=== PATIENT | female | born 1950 | race Caucasian/White ===

== ENCOUNTER → 2017-05-11 | Day surgery (SDC) | payer OTHER ==
[~2017-05-11] VITALS: Ht 165.1 cm; Wt 63.5 kg
--- NOTE | 2017-05-11 11:04 | Operative Report ---
Operative/Inv Procedure Report Surgery Date: 05/11/17 Name of Procedure: 1. exam under anesthesia 2. proctoplasty Pre-Operative Diagnosis: anterior midline mucosal prolapse Post-Operative Diagnosis: same Estimated Blood Loss: scant Surgeon/Solar Sales Representative: Kathryn Leblanc MD Anesthesia: local monitored anesthesi Specimens: prolapse Complications: none Condition: stable Operative Indication: A 66 year-old woman with urinary complaints and anterior midline rectal mucosal prolapse presents for surgery with Dr. Bowens and proctoplasty. All risks, benefits, and alternatives were explained to patient in detail, and she expressed understanding and agreement with the same. Operative/Procedure Note Note: Patient was taking to the operating room and placed on the operating table. Perioperative antibiotic was given and bilateral low extremities SCDs were placed. Anesthesia was established by the anesthesia team. Patient was placed in the modified lithotomy position with legs in Joel stirrups. The perineum was prepped and draped in the standard surgical fashion. The timeout was carried out. The anal block with administered with 30cc Exparel. On anoscopy, patient had and anterior midline mucosal prolapse. The anoderm was dissected sharply and care was taken to identify the sphincter muscles and protect them. The mucosa was excised with the Ligusure device. The mucosa and anoderm were closed with a running 2-0 Vicryl suture in a radial fashion. The anal canal was copiously irrigated and checked for hemostatis. The sponge and instrument counts were correct in the end of the procedure. Dr. Bowens started her part once proctoplasty was complete. Findings: anterior midline rectal prolapse
--- NOTE | 2017-05-11 13:47 | Operative Report ---
Operative/Inv Procedure Report Surgery Date: 05/11/17 Name of Procedure: Cystocele repair with mesh, rectocele repair with Acell mesh. Urethral sling, cystoscopy. Pre-Operative Diagnosis: Cystocele grade 4, rectocele grade 3, stress urinary incontinence. Post-Operative Diagnosis: Same Estimated Blood Loss: none (200cc) Surgeon/Web Developer Programmer: Isa Bowens MD Anesthesia: laryngeal mask airway Implants: Vaginal mesh Complications: None Condition: Stable Operative Indication: Symptomatic pelvic organ prolapse with stress urinary incontinence Operative/Procedure Note Note: This an operative dictation on patient Daria Duke. 66-year-old female with symptomatic vaginal pelvic organ prolapse. On physical examination she had a grade 3-4 cystocele rectocele grade 3 as well as stress urinary incontinence. She was given the risks benefits and alternatives of pelvic organ prolapse surgery including robotic open abdominal vaginal and with it without mesh. The risks benefits and alternatives of the surgeries were given and she wished to proceed with vaginal repair with mesh. All questions were answered. Patient was identified in the holding area and brought to the operating room placed on the operating table in the supine position. Timeout was performed. IV antibiotics were infused and general anesthesia was begun. Patient was then placed in the dorsolithotomy position and and prepped and draped in the standard sterile fashion after shaving the genitalia region. The catheter was placed in the bladder was emptied. This was clamped and placed on the patient's abdomen. [place] retractor was placed with 6 stay hooks. 1% lidocaine with epinephrine was infiltrated into the anterior vaginal wall from the bladder neck to the cervix. Vaginal flaps are created taking care not to injure the bladder. The dissection was carried from the bladder neck down to the 6 spinous process bilaterally into the retropubic space. The sacrospinous ligament was cleaned off on both sides to allow for the thin Capio device to secure Prolene suture through the ligament. This was followed by Prolene sutures through the arcus tendineus on the patient's right and left side at the level of the bladder neck. The Restoril mesh was then used to reduce the cystocele after placing through the Prolene sutures that were in place as previously described. The distal portion was secured with 2-0 Vicryl the bladder neck and the proximal portion was secured at the level of the cervix with a 2-0 Vicryl as well. Down and the cystocele was reduced to grade 1. Area was copiously irrigated with bacitracin irrigation and Surgicel was placed deep into the pelvis along the sacrospinous ligament on the patient's right and left side. Incision was closed with running locking 2-0 Vicryl suture. 10 mL of methylene blue were given at this time to check the patency of the ureters. A cystoscopy was performed and the bladder was globally inspected. There is no mesh in the bladder or the urethra. Ureteral orifices were in their normal anatomic position. Good ureteral Deflux was seen from both ureters. The Farrell was placed back into the bladder and attention was then turned to the sling portion of the case. 1% lidocaine with epinephrine was infiltrated into the anterior vaginal wall beneath the urethra. Vaginal flaps are created taking care not to injure the urethra on the patient's left and right side. Dissection was carried to the retropubic space. The Altis Sling kit was then opened and the trochars provided were used to place the sling in a tension-free manner suburethrally in a flat orientation. The DeBakeys were please between the urethra and the sling when tightening the Prolene suture. There was copiously irrigated with bacitracin irrigation. There is no mesh in the vaginal fornices. The incision was closed with 3-0 Vicryl running locking suture. Attention was then turned to the rectocele portion of the case. 1% lidocaine with epinephrine was infiltrated into the posterior vaginal wall. This was done for hydrodissection and it was stasis. Incision was made horizontally at the level of the posterior fourchette. The Metzenbaum scissors were then used to dissect the posterior flap taking care not to injure the rectum. Once this was done to the proximal portion of the vaginal apex the vaginal flaps are created taking care not to injure the rectum. The [place] retractor was then used to aid in the dissection by retracting the vaginal flaps posteriorly. Once the rectocele was entirely dissected free (periodically placing a digit in the rectum to ensure no rectal injury), the Acell mesh which had been placed in saline 20 minutes prior was then used to help with the rectocele repair. It was sutured proximally with 2-0 Vicryl suture as well as distally at the posterior fourchette. 2-0 Vicryl interrupted sutures were placed along the entire length of the rectocele into the fascial defect on the patient's right and left side. This was then tightened from the proximal to the distal portions sequentially with a cell mesh within the repair. This rectocele was seen to be nicely reduced. Area was copiously irrigated with bacitracin irrigation. The vaginal posterior epithelium was then closed with interrupted 2-0 Vicryl sutures. The rectocele was reduced to grade 0. A cystoscopy was performed at the end of the case and the ureteral orifices were examined once again and good ureteral efflux was seen from both ureters. Again there was no mesh in the bladder or the urethra or the vaginal fornices. A Farrell catheter was placed and attached to a Farr[place] bag. 2 inch vaginal packing impregnated with bacitracin ointment was placed into the vagina. Sponge and needle count were correct at the end of the case. Patient tolerated the procedure well. She was transferred to the recovery room in stable condition. Findings: No mesh in bladder, urethra or vaginal fornices. Good ureteral efflux from both ureters. Discharge Disposition: PACU
== END ==
LOC: STS 03:33
DX: N39.3 Stress incontinence (female) (male) (principal); N81.10 Cystocele, unspecified; N81.6 Rectocele; K62.3 Rectal prolapse; K64.2 Third degree hemorrhoids; R35.0 Frequency of micturition; I10 Essential (primary) hypertension; J44.9 Chronic obstructive pulmonary disease, unspecified; F17.210 Nicotine dependence, cigarettes, uncomplicated
CPT/HCPCS: 88304; C1771; C1781; C9290; J0131; J0690; J2250